=== PATIENT | male | born 1970 | race Two or more races ===

== ENCOUNTER 2021-07-05 20:56 | Emergency (ER) | payer SELFPAY ==
[~2021-07-05] VITALS: Ht 154.9 cm; Wt 63.5 kg
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
[2021-07-05 21:20] VITALS: BP 132/72
--- NOTE | 2021-07-05 21:38 | NUR ---
WHEELED TO RADIOLOGY DEPT FOR CT SCAN
== END 2021-07-05 22:57 ==
LOC: ER 21:01
DX: S01.112A Laceration without foreign body of left eyelid and periocular area, initial encounter (principal); Y04.0XXA Assault by unarmed brawl or fight, initial encounter; Y93.89 Activity, other specified; Y92.89 Other specified places as the place of occurrence of the external cause; Y99.8 Other external cause status
CPT/HCPCS: 70486-TC